=== PATIENT | female | born 1970 | race Two or more races ===

== ENCOUNTER 2022-09-09 10:28 | Outpatient (REF) | payer OTHER, SELFPAY ==
[2022-09-09 11:33] LABS: MANUAL DIFF FLAG NO
[2022-09-09 11:38] LABS: Basophils Percent Auto 0.6 % (0-2); Eosinophils Absolute Auto 0.1 X10*3/uL (0.0-0.4); Hematocrit 39.1 % (37.0-47.0); Hemoglobin 12.9 g/dl (12.0-16.0); Imm Gran Abs Auto 0.01 X10*3/uL (0.00-0.03); Imm Gran Pct Auto 0.3 % (0.0-0.4); Lymphocytes Absolute Auto 1.2 X10*3/uL (1.2-4.9); Lymphocytes Percent Auto 34.6 % (20-40); Mean Corpuscular Hemoglobin 27.6 pg (27.0-33.0); Mean Corpuscular Volume 83.5 fL (80.0-98.0); Mean Platelet Volume 12.1 fL (9.4-12.3); Monocytes Absolute Auto 0.3 X10*3/uL (0.1-1.2); Monocytes Percent Auto 7.6 % (2-11); Neutrophils Absolute Auto 1.9 x10*3/uL (2.0-8.3); Neutrophils Percent Auto 54.9 % (45-73); Platelet Count 182 X10*3/uL (160-400); Red Blood Count 4.68 X10*6/uL (4.20-5.50); Red Cell Distribution Width 12.8 % (11.0-16.0); White Blood Count 3.5 X10*3/uL (4.8-10.8)
[2022-09-09 12:15] LABS: Alanine Aminotransferase 13 U/L (0-31); Anion Gap 14 (12-20); Aspartate Amino Transferase 15 U/L (5-31); Blood Urea Nitrogen 20 mg/dL (9-16); Calcium 9.4 mg/dL (8.4-10.2); Carbon Dioxide 26 mmol/L (22-29); Chloride 107 mmol/L (96-108); Cholesterol 218 mg/dL; Estimated Glomerular Filt Rate 58; Glucose Fasting 97 mg/dL (60-99); HDL Cholesterol 65 mg/dL; LDL Cholesterol Calculated 137 mg/dl; Potassium 4.2 mmol/L (3.3-5.1); Sodium 143 mmol/L (135-145); Triglycerides 80 mg/dL
[2022-09-09 12:39] LABS: TSH reflex Free T4 1.05 uIU/mL (0.32-4.0); Vitamin D 25-OH Total 29.6 ng/mL (>30)
== END 2022-09-09 10:29 | disposition home or self-care (01) ==
LOC: HO.HMGCLDS 10:28
PROVIDERS: PCP Internal Medicine; Visit Provider Internal Medicine
DX: Z00.01 Encounter for general adult medical examination with abnormal findings (principal); R53.83 Other fatigue; M79.672 Pain in left foot; E66.9 Obesity, unspecified; Z78.0 Asymptomatic menopausal state
CPT/HCPCS: 36415; 80048; 80061; 82306; 84443; 84450; 84460; 85025

== ENCOUNTER 2022-10-05 15:54 | Outpatient (REF) | payer OTHER, SELFPAY ==
--- NOTE | ~2022-10-05 | MM_ITS ---
EXAMINATION: MM SCREENING DIGITAL BREAST TOMOSYNTHESIS, BILATERAL CLINICAL INFORMATION: Screening. Asymptomatic. COMPARISON: Mammography: February 15, 2017 and May 11, 2015 TECHNIQUE: Digital breast tomosynthesis is performed in both the craniocaudal and mediolateral oblique views along with computer-aided detection (CAD). Synthesized 2D images are generated from the tomosynthesis. FINDINGS: The breasts are heterogeneously dense, which may obscure small masses (ACR BI-RADS breast composition Category c). There are no significant masses, abnormal calcifications, or other abnormalities. MM/MM tomosynthesis screening BI IMPRESSION: No significant changes from prior exam. ASSESSMENT: BI-RADS 1: Negative RECOMMENDATION: Routine annual mammography screening. This patient's information was entered into a reminder system with a target due date for their next mammogram.
== END 2022-10-05 15:55 | disposition home or self-care (01) ==
LOC: HO.MAMMO 15:54
PROVIDERS: PCP Internal Medicine; Visit Provider Internal Medicine
DX: Z12.31 Encounter for screening mammogram for malignant neoplasm of breast (principal)
CPT/HCPCS: 77063; 77067

== ENCOUNTER 2022-12-08 13:25 | Outpatient (REF) | payer OTHER, SELFPAY ==
[2022-12-09 11:04] LABS: CT PCR NOT DETECTED (Not Detect.); NG PCR NOT DETECTED (Not Detect.)
[2022-12-09 11:24] LABS: BV Int Neg Control Negative (Negative); BV Int Pos Control Positive (Positive)
== END 2022-12-08 13:26 | disposition home or self-care (01) ==
LOC: HO.LNP 13:25
PROVIDERS: PCP Internal Medicine; Visit Provider Advanced Practice Midwife
DX: Z11.3 Encounter for screening for infections with a predominantly sexual mode of transmission (principal); N89.8 Other specified noninflammatory disorders of vagina; N95.0 Postmenopausal bleeding; R30.0 Dysuria; M54.50 Low back pain, unspecified
CPT/HCPCS: 0353U; 87480; 87510; 87660

== ENCOUNTER 2023-01-02 15:49 | Outpatient (REF) | payer OTHER, SELFPAY ==
--- NOTE | ~2023-01-02 | US_ITS ---
EXAMINATION: US PELVIS CLINICAL INFORMATION: Postmenopausal bleeding. COMPARISON: None TECHNIQUE: Ultrasound of the pelvis is performed using both transabdominal and transvaginal transducers along with Doppler. Transvaginal imaging is performed due to inadequate visualization transabdominally. FINDINGS: Uterus: The uterus is anteverted and measures 8.1 x 4.1 x 5.0 cm. Multiple nabothian cysts are seen within the cervix. There is trace free fluid within the endocervical canal. The double wall endometrial thickness is 0.3 mm. The uterus is smooth in contour and has heterogeneous myometrial echogenicity. No visible fibroid. Adnexa: The right ovary is visualized, and the left ovary is not visualized. There is normal color flow to the adnexa. There is no ovarian torsion. There is no pelvic ascites or fluid collection. Right ovary measures 1.9 x 1.4 x 2.0 cm, volume 2.7 mL. US/US pelvic and transvaginal IMPRESSION: 1. Multiple nabothian cysts are seen within the cervix. 2. There is trace endocervical nonspecific fluid. 3. The left ovary is not identified.
== END 2023-01-02 15:50 | disposition home or self-care (01) ==
LOC: HO.US 15:49
PROVIDERS: Visit Provider Advanced Practice Midwife
DX: N95.0 Postmenopausal bleeding (principal)
CPT/HCPCS: 76830; 76856

== ENCOUNTER → 2023-03-16 14:57 | Outpatient (BNVA) | payer OTHER, SELFPAY | PROVIDERS: PCP Internal Medicine; Visit Provider Advanced Practice Midwife | DX: Z13.89 Encounter for screening for other disorder (principal) ==

== ENCOUNTER 2023-09-05 12:18 | Emergency (ER) | payer OTHER, SELFPAY ==
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
[2023-09-05 13:56] VITALS: BP 116/70; PULSE 75; RESP 18; TEMP 36.8; O2SAT 100; BMI 31.2
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
[2023-09-05 16:14] LABS: Alanine Aminotransferase 10 U/L (0-31); Albumin Level 4.2 g/dL (3.5-5.0); Alkaline Phosphatase 72 U/L (39-117); Anion Gap 13 (12-20); Aspartate Amino Transferase 12 U/L (5-31); Bilirubin Direct 0.1 mg/dL (0.0-0.5); Bilirubin Total 0.3 mg/dL (0.0-1.0); Blood Urea Nitrogen 18 mg/dL (9-16); Calcium 9.4 mg/dL (8.4-10.2); Carbon Dioxide 26 mmol/L (22-29); Chloride 107 mmol/L (96-108); Estimated Glomerular Filt Rate > 60; Glucose Random 111 mg/dL (60-115); Magnesium 2.2 mg/dL (1.6-2.6); Sodium 142 mmol/L (135-145); Total Protein 7.1 g/dL (6.5-8.0)
== END 2023-09-05 17:35 | disposition home or self-care (01) ==
PROVIDERS: Physician Assistant; Emergency Provider Emergency Medicine Emergency Medical Services; PCP Internal Medicine
DX: S16.1XXA Strain of muscle, fascia and tendon at neck level, initial encounter (principal); S30.0XXA Contusion of lower back and pelvis, initial encounter; M54.2 Cervicalgia; R51.9 Headache, unspecified; M79.10 Myalgia, unspecified site; V43.52XA Car driver injured in collision with other type car in traffic accident, initial encounter; Y93.9 Activity, unspecified; Y92.410 Unspecified street and highway as the place of occurrence of the external cause; Y99.9 Unspecified external cause status; Z79.899 Other long term (current) drug therapy
CPT/HCPCS: 36415; 72100; 80048; 80076; 83735; 85025; 99283

== ENCOUNTER 2023-09-14 12:18 | Outpatient (AMB) | payer OTHER, SELFPAY ==
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
[2023-09-14 12:53] VITALS: BP 128/72; PULSE 88; O2SAT 98; BMI 31.0
== END 2023-09-14 14:04 | disposition home or self-care (01) ==
PROVIDERS: Visit Provider Internal Medicine
DX: M54.42 Lumbago with sciatica, left side (principal); M54.41 Lumbago with sciatica, right side; Z87.828 Personal history of other (healed) physical injury and trauma; S13.4XXA Sprain of ligaments of cervical spine, initial encounter
CPT/HCPCS: 99213

== ENCOUNTER 2023-10-03 14:27 | Outpatient (AMB) | payer OTHER, SELFPAY ==
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
[2023-10-03 15:37] VITALS: BP 114/70; PULSE 89; TEMP 36.3; O2SAT 98; BMI 31.0
== END 2023-10-03 16:20 | disposition home or self-care (01) ==
PROVIDERS: PCP Internal Medicine; Visit Provider Internal Medicine
DX: M54.42 Lumbago with sciatica, left side (principal); M54.41 Lumbago with sciatica, right side
CPT/HCPCS: 99213

== ENCOUNTER 2023-10-16 09:02 | Outpatient (AMB) | payer OTHER, SELFPAY ==
[2023-10-16 09:05] VITALS: BP 108/72; PULSE 75; O2SAT 99; BMI 31.3
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
== END 2023-10-16 10:50 | disposition home or self-care (01) ==
PROVIDERS: PCP Internal Medicine; Visit Provider Internal Medicine
DX: Z87.828 Personal history of other (healed) physical injury and trauma (principal); M54.42 Lumbago with sciatica, left side; M54.41 Lumbago with sciatica, right side
CPT/HCPCS: 99213

== ENCOUNTER 2023-11-06 10:47 | Outpatient (AMB) | payer OTHER, SELFPAY ==
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
[2023-11-06 10:54] VITALS: BP 118/86; PULSE 78; O2SAT 98; BMI 30.9
== END 2023-11-06 12:36 | disposition home or self-care (01) ==
PROVIDERS: PCP Internal Medicine; Visit Provider Internal Medicine
DX: M51.16 Intervertebral disc disorders with radiculopathy, lumbar region (principal); Z87.828 Personal history of other (healed) physical injury and trauma
CPT/HCPCS: 99214

== ENCOUNTER 2023-11-22 12:46 | Outpatient (AMB) | payer OTHER, SELFPAY ==
[2023-11-22 13:04] VITALS: BP 102/62; BMI 30.9
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
== END 2023-11-22 13:33 | disposition home or self-care (01) ==
LOC: HO.HWS 12:46
PROVIDERS: PCP Internal Medicine; Visit Provider Advanced Practice Midwife
DX: L29.2 Pruritus vulvae (principal); N90.4 Leukoplakia of vulva
CPT/HCPCS: 99213

== ENCOUNTER 2023-11-22 12:46 | Outpatient (REF) | payer OTHER, SELFPAY ==
[2023-11-23 15:23] LABS: BV Int Neg Control Negative (Negative); BV Int Pos Control Positive (Positive)
== END 2023-11-22 12:47 | disposition home or self-care (01) ==
LOC: HO.LAB 12:46
PROVIDERS: PCP Internal Medicine; Visit Provider Advanced Practice Midwife
DX: N89.8 Other specified noninflammatory disorders of vagina (principal); L29.2 Pruritus vulvae; N90.4 Leukoplakia of vulva
CPT/HCPCS: 87480; 87510; 87660

== ENCOUNTER 2023-12-13 14:01 | Outpatient (AMB) | payer OTHER, SELFPAY ==
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
== END 2023-12-13 15:30 | disposition home or self-care (01) ==
PROVIDERS: PCP Internal Medicine; Referring Provider Internal Medicine; Visit Provider Physician Assistant
DX: M51.16 Intervertebral disc disorders with radiculopathy, lumbar region (principal)
CPT/HCPCS: 99204

== ENCOUNTER → 2023-12-13 14:01 | Outpatient (BNVA) | payer OTHER, SELFPAY | PROVIDERS: PCP Internal Medicine; Visit Provider Physician Assistant ==

== ENCOUNTER 2023-12-14 13:25 | Outpatient (AMB) | payer OTHER, SELFPAY ==
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
[2023-12-14 14:37] VITALS: BP 104/70; PULSE 74; O2SAT 98; BMI 30.7
== END 2023-12-14 16:02 | disposition home or self-care (01) ==
PROVIDERS: PCP Internal Medicine; Visit Provider Physician Assistant Medical
DX: M54.42 Lumbago with sciatica, left side (principal); M54.41 Lumbago with sciatica, right side; R10.32 Left lower quadrant pain
CPT/HCPCS: 99213

== ENCOUNTER 2023-12-24 13:48 | Outpatient (AMB) | payer OTHER, SELFPAY ==
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
[2023-12-24 13:58] VITALS: BP 122/78; PULSE 91; BMI 30.7
== END 2023-12-24 16:40 | disposition home or self-care (01) ==
PROVIDERS: PCP Internal Medicine; Visit Provider Internal Medicine
DX: Z12.11 Encounter for screening for malignant neoplasm of colon (principal); Z01.818 Encounter for other preprocedural examination
CPT/HCPCS: 99213

== ENCOUNTER → 2023-12-24 13:48 | Outpatient (BNVA) | payer OTHER, SELFPAY | PROVIDERS: PCP Internal Medicine; Visit Provider Internal Medicine ==

== ENCOUNTER 2024-01-03 16:05 | Outpatient (AMB) | payer OTHER, SELFPAY ==
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
[2024-01-03 16:39] VITALS: BP 112/82; PULSE 98; O2SAT 97; BMI 31.2
== END 2024-01-03 17:22 | disposition home or self-care (01) ==
PROVIDERS: PCP Internal Medicine; Visit Provider Internal Medicine
DX: H02.89 Other specified disorders of eyelid (principal); H02.842 Edema of right lower eyelid; H02.845 Edema of left lower eyelid; M54.42 Lumbago with sciatica, left side; M54.41 Lumbago with sciatica, right side
CPT/HCPCS: 99213

== ENCOUNTER 2024-11-27 11:25 | Day surgery (SDC) | payer OTHER, SELFPAY ==
[2024-11-24 13:35] VITALS: BMI 31.2
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
[2024-11-27 11:49] VITALS: BMI 29.1
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
[2024-11-27] MEDS: Lactated Ringers 1,000 ML 100 ML IVCONT (12:15)
[2024-11-27 12:17] VITALS: BP 102/70; PULSE 86; RESP 14; TEMP 37.1; O2SAT 97
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
[2024-11-27 12:43] VITALS: BP 92/49; PULSE 77; RESP 12; TEMP 36.1; O2SAT 97
--- NOTE | 2024-11-27 12:46 | P.OPN-COLO_ITS ---
Colonoscopy Operative Note Operative Note Date of Service: 11/27/24 Narrative: Procedure: Colonoscopy Indication: Screening Endoscopist: Beckie Wright MD Anesthesia Provider: Marietta Verma MD Anesthesia type: MAC Instrument: Olympus [id number]-[id number] Consent: Indication, risks vs benefits, and alternatives were discussed with the patient who gave written informed consent to proceed. EKG, pulse, pulse oximetry and blood pressure were monitored throughout the procedure. Please see anesthesia flowsheet. Procedure: The patient was brought to the procedure room and placed in the left lateral decubitus position. IV medications were administered by the anesthesia provider in attendance. A digital rectal exam was performed which was normal. A distal attachment cap was affixed to the tip of the colonoscope which was then inserted through the anus and advanced through the colon to the cecum at 75 c m,and terminal ileum. Appendiceal orifice and ileocecal valve were identified. Mucosa was carefully examined under high definition white light as the instrument was slowly withdrawn in a retrograde panoramic fashion. Retroflexion was performed in rectum. The procedure was not difficult. There were no immediate obvious complications. The quality of the prep was BBPS: 2+3+3 = adequate Withdrawal time 8 minutes. Limitations: No limitations. Findings: Mucosa: Normal to cecum and terminal ileum. Protruding lesions: * Medium internal hemorrhoids without stigmata of recent bleeding. Impression: 1. Normal colon mucosa 2. Internal hemorrhoids Recommendations: - Repeat colonscopy in 10 years for asymptomatic colorectal cancer screening
[2024-11-27 12:55] VITALS: BP 95/64; PULSE 81; RESP 14; TEMP 36.1; O2SAT 99
--- NOTE | 2024-11-27 13:57 | HO.POSTANES ---
Post Anesthesia Evaluation Post Anesthesia Evaluation Date of Service: 11/27/24 Vital Signs: Vital Signs Temp Pulse Resp BP Pulse Ox O2 Del Method 11/27/24 12:55 97 F 81 14 95/64 99 Room Air 11/27/24 12:43 97 F 77 12 92/49 L 97 Room Air 11/27/24 12:17 98.8 F 86 14 102/70 97 Room Air Anesthesia: Monitored Mental Status: Awake Pain Control: Satisfactory Nausea/Vomiting: None Hydration: Adequate Anesthesia-Related Issues: No Anes. Related Issues
== END 2024-11-27 13:21 | disposition home or self-care (01) ==
PROVIDERS: PCP Internal Medicine; Visit Provider Internal Medicine
PROC: 0DJD8ZZ Inspection of Lower Intestinal Tract, Via Natural or Artificial Opening Endoscopic (ICD-10-PCS; CPT 45378; principal; 2024-11-27 13:00)
DX: Z12.11 Encounter for screening for malignant neoplasm of colon (principal); K64.8 Other hemorrhoids; N88.8 Other specified noninflammatory disorders of cervix uteri; L30.8 Other specified dermatitis; E66.9 Obesity, unspecified; Z68.30 Body mass index [BMI] 30.0-30.9, adult; Z87.828 Personal history of other (healed) physical injury and trauma; M51.16 Intervertebral disc disorders with radiculopathy, lumbar region; Z79.899 Other long term (current) drug therapy; Z88.0 Allergy status to penicillin; Z98.890 Other specified postprocedural states
CPT/HCPCS: 45378; J2003; J2704

== ENCOUNTER → 2024-11-27 11:25 | Outpatient (BNV) | payer OTHER, SELFPAY | PROVIDERS: PCP Internal Medicine; Visit Provider Internal Medicine | DX: Z12.11 Encounter for screening for malignant neoplasm of colon (principal); K64.8 Other hemorrhoids | CPT/HCPCS: 45378 ==

== ENCOUNTER 2025-05-28 08:51 | Outpatient (REF) | payer OTHER, SELFPAY ==
[2025-05-28 13:21] LABS: MANUAL DIFF FLAG NO
[2025-05-28 13:26] LABS: Hematocrit 36.9 % (37.0-47.0); Hemoglobin 12.4 g/dl (12.0-16.0); Imm Gran Abs Auto 0.00 X10*3/uL (0.00-0.03); Imm Gran Pct Auto 0.0 % (0.0-0.4); Lymphocytes Absolute Auto 1.5 X10*3/uL (1.2-4.9); Mean Corpuscular HGB Conc 33.6 g/dl (31.0-35.0); Mean Corpuscular Hemoglobin 28.1 pg (27.0-33.0); Mean Corpuscular Volume 83.5 fL (80.0-98.0); NRBC Abs Auto 0.000 X10*3/uL (0.0-0.012); NRBC Pct Auto 0.0 /100WBC (0.0-0.2); Platelet Count 177 X10*3/uL (160-400); Red Blood Count 4.42 X10*6/uL (4.20-5.50); White Blood Count 4.1 X10*3/uL (4.8-10.8)
[2025-05-28 13:39] LABS: Alanine Aminotransferase 16 U/L (0-31); Anion Gap 12 (12-20); Aspartate Amino Transferase 22 U/L (5-31); Blood Urea Nitrogen 14 mg/dL (9-16); Calcium 9.1 mg/dL (8.4-10.2); Carbon Dioxide 27 mmol/L (22-29); Chloride 108 mmol/L (96-108); Cholesterol 185 mg/dL (<200); Estimated Glomerular Filt Rate > 60; HDL Cholesterol 61 mg/dL (>40); Potassium 3.8 mmol/L (3.3-5.1); Sodium 143 mmol/L (135-145); Triglycerides 76 mg/dL (<150)
== END 2025-05-28 08:52 | disposition home or self-care (01) ==
LOC: HO.HMGCLDS 08:51
PROVIDERS: PCP Internal Medicine; Visit Provider Internal Medicine
DX: Z00.01 Encounter for general adult medical examination with abnormal findings (principal); E66.9 Obesity, unspecified; Z68.31 Body mass index [BMI] 31.0-31.9, adult; M54.50 Low back pain, unspecified; Z71.89 Other specified counseling; Z13.31 Encounter for screening for depression; Z13.39 Encounter for screening examination for other mental health and behavioral disorders
CPT/HCPCS: 36415; 80048; 80061; 82306; 84450; 84460; 85025; 96127

== ENCOUNTER 2025-05-28 08:51 | Outpatient (AMB) | payer OTHER, SELFPAY ==
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
[2025-05-28 09:02] VITALS: BP 94/70; PULSE 74; RESP 16; TEMP 36.6; O2SAT 97; BMI 31.3
== END 2025-05-28 09:58 | disposition home or self-care (01) ==
LOC: HO.HMCC 08:52
PROVIDERS: PCP Internal Medicine; Visit Provider Internal Medicine
DX: Z00.00 Encounter for general adult medical examination without abnormal findings (principal); E66.9 Obesity, unspecified; Z68.31 Body mass index [BMI] 31.0-31.9, adult; M54.50 Low back pain, unspecified; Z71.89 Other specified counseling